=== PATIENT | female | born 1955 | race Caucasian/White ===

== ENCOUNTER 2019-02-28 06:12 | Day surgery (SDC) | payer OTHER ==
[2019-02-28] MEDS ORDERED: PROPOFOL 20 ML (07:31)
== END 2019-02-28 10:17 | disposition home or self-care (01) ==
LOC: GIL 06:12
DX: K20.8 Other esophagitis (principal); K29.50 Unspecified chronic gastritis without bleeding
CPT/HCPCS: 43239; 88305; 88312; 88313